=== PATIENT | female | born 1995 | race Caucasian/White ===

== ENCOUNTER 2016-07-01 14:58 | Emergency (ER) | payer MEDICAID ==
[~2016-07-01] VITALS: Ht 160 cm; Wt 120.0 kg
[2016-07-01 15:17] VITALS: Ht 160 cm; Wt 120.0 kg
[2016-07-01] MEDS ORDERED: KETOROLAC 60 MG INJ IM STA (16:43)
--- NOTE | 2016-07-01 17:22 | RADRPT ---
PROCEDURE: XR Knee. CLINICAL INDICATION: Left knee pain TECHNIQUE: 3 images of the left knee are available for review. COMPARISON: None available FINDINGS: There is no acute fracture. Alignment is normal. Joint spaces are preserved. Soft tissues are grossly unremarkable. IMPRESSION: 1. No radiographic evidence of acute osseous abnormality of the left knee. RPTAT: [facility]U .Umberto Copeland MD, MD Date Time Electronically viewed and signed by .Umberto Copeland MD, on 07/01/2016 17:21 .K/
[2016-07-01] MEDS ORDERED: NAPR-260 PO (17:32)
[2016-07-01] MEDS ORDERED: CYCL-319 PO (17:32)
--- NOTE | 2016-07-01 17:41 | ERD ---
ER Documentation Chief Complaint Date/Time DATE: 07/01/16 TIME: 17:37 Chief Complaint left knee pain x 3 days HPI Patient is a 21-year-old female who presents with left knee pain for the past 3 days. Denies any trauma. She has not taken any medication. She states the pain is 10 out of 10. Denies any redness, fever. Denies any numbness or tingling. She is able to able to tolerate. ROS All systems reviewed and are negative except as per history of present illness. Medications Home Meds Active Scripts Naproxen* (Naprosyn*) 500 Mg Tablet, 500 MG PO BID Y for PAIN AND/OR INFLAMMATION, #30 TAB Prov:ARABELLA HERR PA-C 07/01/16 Cyclobenzaprine Hcl* (Cyclobenzaprine Hcl*) 10 Mg Tablet, 10 MG PO QHS, #20 TAB Prov:ARABELLA HERR PA-C 07/01/16 Allergies Allergies: Coded Allergies: No Known Allergy (Unverified , 07/01/16) PMhx/Soc Medical and Surgical Hx: pt denies Medical Hx, pt denies Surgical Hx Hx Alcohol Use: No Hx Substance Use: No Hx Tobacco Use: No Smoking Status: Never smoker FmHx Family History: No diabetes Physical Exam Vitals Vital Signs Date Time Temp Pulse Resp B/P Pulse Ox O2 Delivery O2 Flow Rate FiO2 07/01/16 15:17 97.8 82 18 129/62 97 Physical Exam General: well developed, well nourished, alert, nontoxic, no distress, morbidly obese Head: normocephalic, atraumatic Neck: Supple, nontender, no lymphadenopathy, no midline tenderness Respiratory: Clear to auscaultation bilaterally, speaks in full sentences, no use of accesory muscles or labored breathing, no rales, ronchi, or wheezing Cardiovascular: RRR, No murmurs Back: no midline tenderness, no step offs or bony abnormalities, sensation to light touch in tact Extremities: moving all extremities normally, normal gait, no edema. Left knee : No erythema, no edema, popliteal pulse 2+, sensation to light touch intact, nontender to palpation throughout Results 24 hrs Current Medications Medications (Trade) Dose Ordered Sig/Yin Route PRN Reason Start Time Stop Time Status Last Admin Dose Admin Ketorolac Tromethamine (Toradol) 60 mg ONCE STAT IM 07/01/16 16:43 07/01/16 16:45 DC 07/01/16 17:29 Procedures/MDM This is a morbidly obese 21-year-old female who has left knee pain. There is no trauma she is neurovascular intact. There is no redness or warmth. She has no fever. There is no evidence of infection or septic joint. She was given Toradol and an x-ray was ordered which was unremarkable. Her knee was Bobby wrapped. She was discharged with Naprosyn and Flexeril and a copy of radiology reports she can follow up with primary care. Recommended this patient follow up with her primary care doctor within 48 hours or return to the emergency room for any worsening of symptoms. However this time I do believe there is suitable for outpatient management. I answered all their questions and they agreed with the plan and were discharged home. Departure Diagnosis: Primary Impression: Knee pain Condition: Stable Patient Instructions: Knee Pain, Uncertain Cause Additional Instructions: Call your primary care doctor TOMORROW for an appointment during the next 1-2 days.See the doctor sooner or return here if your condition worsens before your appointment time. ARABELLA HERR PA-C Jul 01, 2016 17:41
== END 2016-07-01 19:04 | disposition home or self-care (01) ==
LOC: FTE 14:58
DX: M25.562 Pain in left knee (principal)
CPT/HCPCS: 73562; J1885; 96372